=== PATIENT | male | born 1960 | race Caucasian/White ===

== ENCOUNTER 2019-02-25 09:43 | Day surgery (SDC) | payer BC ==
--- OUTSIDE RECORDS SUMMARY | 2019-02-25 09:50 | XMS REPORT ---
:1960 [facility] Address [address] [place] [address] Care Team Providers Name Role Phone BRIGITTE PICKETT Primary Care Provider Unavailable BRIGITTE PICKETT Unavailable Unavailable Problems This patient has no known problems. Allergies, Adverse Reactions, Alerts This patient has no known allergies or adverse reactions. Medications This patient has no known medications. Encounters Start End Encounter Admission Attending Care Care Encounter Date/Time Date/Time Type Type Clinicians Facility Department ID 2017-08-01 2017-08-01 Outpatient [facility] [id number] 08:51:00 08:51:00 BRIGITTE Results Test Description Test Time Test Comments Text Results Atomic Results Result Comments Glycosylated Hemoglobin 2017-08-02 12:33:00 Test Item Value Reference Range Comments HBA1c (test code=HBA1C) 7.3 % 4.8-5.9 CBC with [id number] 12:23:00 Test Item Value Reference Range Comments WBC (test code=WBC) 7.6 K/cumm 4.4-10.5 RBC (test code=RBC) 4.54 M/cumm 4.10-5.70 Hemoglobin (test code=HGB) 14.8 gm/dL 13.4-17.4 Hematocrit (test code=HCT) 42.8 % 38.7-52.0 MCV (test code=MCV) 94.2 fL 80-100 MCH (test code=MCH) 32.7 pg 27.0-32.5 MCHC (test code=MCHC) 34.7 g/dL 32.0-37.5 RDW (test code=RDW) 12.7 % 11.5-14.5 Platelet Count (test code=PLTCT) 193 K/cumm 140-440 MPV (test code=MPV) 11.6 fL Diff Method (test code=DIFFM) Auto Neutrophil (test code=NEUT) 62.0 % 36-70 Lymphocyte (test code=LYMPH) 28.4 % 12-44 Monocyte (test code=MONO) 5.9 % 0-11 Eosinophil (test code=EOS) 2.9 % 0-7 Basophil (test code=BASO) 0.8 % 0-2 Neutro Abs (test code=ANEUT) 4.7 K/cumm 1.6-7.4 Lymph Abs (test code=ALYMPH) 2.2 K/cumm 0.5-4.6 Lasalle Abs (test code=AMONO) 0.5 K/cumm 0.0-1.2 Eos Abs (test code=AEOS) 0.22 K/cumm 0.00-0.74 Baso Abs (test code=ABASO) 0.1 K/cumm 0.00-0.21 [id number] 12:23:00 Test Item Value Reference Range Comments NT ProBnp (test code=PBNP) 18 pg/mL 0-124 Comprehensive Metabolic [id number] 12:23:00 Test Item Value Reference Range Comments Sodium (test code=NA) 138 mmol/L 135-145 Potassium (test code=K) 4.5 mmol/L 3.5-5.1 Chloride (test code=CL) 99 mmol/L 98-105 Carbon Dioxide (test 28 mmol/L 22-29 code=CO2) Glucose (test code=GLU) 224 mg/dL 70-115 Blood Urea Nitrogen 20 mg/dL 6-20 (test code=BUN) Creatinine (test 0.8 mg/dL 0.7-1.2 code=CREAT) Calcium (test code=CA) 10.3 mg/dL 8.3-10.5 Prot Total (test 8.3 g/dL 6.4-8.3 code=TP) Albumin (test code=ALB) 5.0 g/dL 3.5-5.2 A/G Ratio (test 1.5 Ratio code=AGRATIO) Globulin (test 3.3 2.9-3.1 code=GLOB) Bili Total (test 0.7 mg/dL 0.1-0.9 code=TBIL) Alk Phos (test 86 U/L 40-129 code=APHOS) AST (test code=AST) 49 U/L 1-40 The value HEMO originally released by EL on 08/02/2017 09:56 waschanged to 49 by EL on 08/02/2017 10:00 ALT (test code=ALT) 88 U/L 1-41 BUN/Creatinine Ratio 25.0 (test code=BCRATIO) Anion Gap (test 11 mmol/L 7-16 code=AGAP) Estimated GFR (test >60 mL/min/1.73m2 eGFR (estimated Glomerular code=GFR) Filtration Rate) is an estimated value,calculated from the patient's serum creatinine using the MDRD equation.It is NOT the patient's actual GFR. The eGFR provides a more clinicallyuseful measure of kidney disease than serum creatinine alone.This calculation takes sex and race into account, if the informationis provided. If the race is not provided, and the patient isAfrican-Nepalese, multiply by 1.212. If sex is not provided, and thepatient is female, multiply by 0.742. Results for patients <18 years ofage have not been validated by the MDRD study and should be interpretedwith caution.eGFR Result Interpretation:eGFR > or=60 is in the Normal RangeeGFR < 60 may mean kidney diseaseeGFR < 15 may mean kidney failureRanges recommended by the National Kidney Foundation,http://nkdep.nih .gov Lipid [id number] 12:23:00 Test Item Value Reference Range Comments Cholesterol (test 180 mg/dL 0-200 code=CHOL) Triglycerides (test 74 mg/dL 9-200 code=TRIG) HDL (test code=HDL) 97 mg/dL 40-60 Chol/HDL (test 1.9 Ratio 0.0-5.0 code=CHOLPHDL) LDL, Calculated (test 68 0-130 (NOTE)RISK OF HEART code=LDLC) DISEASEPublished by Nepalese Heart AssociationAnalyte Optimal Boderline Increased RiskCHOL <200 200-239 >240TRIG <150 150-199 >200HDL Male: >60 <40HDL Female: >60 <50LDL <100 130-159 >160LDL NEAR OPTIMAL IS 100-129 VLDL (test code=VLDL) 15 mg/dL 5-40 LDL/HDL (test code=LDLPHDL) 1
[2019-02-25] MEDS ORDERED: BALANCED SALT IRRIG PLAIN 500 ML BTL IRR ONE (09:53)
[2019-02-25] MEDS ORDERED: EPINEPHRINE/PF 1 MG/ML AMP ONE ×2 (09:53→09:55)
[2019-02-25] MEDS ORDERED: LIDOCAINE 2% INJ, MPF 2 ML 0 ML ONE (09:54)
[2019-02-25] MEDS ORDERED: DUOVISC 1 KIT OPTH ONE (09:54)
[2019-02-25] MEDS ORDERED: MOXIFLOXACIN HCL 10 DROPS/ML **OR USE OPTH ONE (09:54)
[2019-02-25] MEDS ORDERED: NA CHLORIDE 0.9% 500 ML ONE (10:22)
[2019-02-25] MEDS ORDERED: PHENYLEPHRINE 10% OPTH 5ML ONE (10:25)
[2019-02-25] MEDS ORDERED: LIDOCAINE 2% MPF 5 ML VIAL ONE (10:26)
[2019-02-25] MEDS ORDERED: TETRACAINE HCL 0.5% 4ML OPTH ONE (10:26)
[2019-02-25] MEDS ORDERED: CYCLOPENTOLATE 1% OPTH 2 ML ONE (10:26)
[2019-02-25] MEDS ORDERED: BUPIVACAINE 0.25% PF 10 ML VIAL ONE (10:26)
[2019-02-25] MEDS ORDERED: LIDOCAINE HCL/PF 3.5% OPTH GEL ONE (10:27)
[2019-02-25] MEDS ORDERED: PHENYLEPHRINE 10% OPTH 5ML OPTH ONE ×2 (10:40→10:46)
[2019-02-25] MEDS ORDERED: CYCLOPENTOLATE 1% OPTH 2 ML OPTH ONE ×2 (10:40→10:46)
[2019-02-25] MEDS ORDERED: NS 0.9% VIAL 10 ML ONE (10:45)
[2019-02-25] MEDS ORDERED: MIDAZOLAM HCL 2 MG/2 ML INJ ONE ×2 (11:08→11:46)
[2019-02-25] MEDS ORDERED: FENTANYL CITR 100 MCG/2 ML ONE (11:08)
[2019-02-25] MEDS ORDERED: PROPOFOL 200 MG/20 ML VIAL IV ONE (11:50)
--- NOTE | 2019-02-25 12:22 | P.BOP ---
Preoperative diagnosis: Nuclear sclerotic cataract OS Postoperative diagnosis: Same Primary procedure: Phacoemulsification with IOL OS Estimated blood loss: None Anesthesia: Local (Topical converted to subtenon's anesthesia) Complications: None Implants: ZCB00 +21.0 Transferred to: Other (Day surgery) Condition: Good
[2019-02-25] MEDS ORDERED: LIDOCAINE 1% MPF 2 ML AMPULE ONE (12:28)
--- NOTE | 2019-02-25 22:36 | OP ---
Date of Procedure: 02/25/2019 Surgeon: Beverly Marley MD Anesthesiologist: Saran Matthews CRNA and Bravo Mendoza MD Preoperative Diagnosis: Nuclear sclerotic cataract, left eye. Operation Performed: Phacoemulsification with intraocular lens implant, left eye. Anesthesia: Per cataract surgery. Complications: None. Description Of Procedure: In the operating room the patient was prepped and draped in the usual sterile fashion for ophthalmic surgery. A lid speculum was placed in the left eye. Two paracentesis sites were made superiorly and inferiorly in the limbal cornea. Viscoat was placed in the anterior chamber and a crescent blade was used to make a corneal groove and tunnel, and a keratome was used to enter the anterior chamber. Provisc was placed in the anterior chamber and a 360 degree capsulotomy was performed with a cystitome. The lens was hydrodissected with BSS and rotated freely. The lens was removed with a stop and chop technique. 4.16 phaco CDE was used to remove the lens. Residual cortex was removed with the irrigation and aspiration. Provisc was placed in the capsular bag. A ZCB00 +21.0 lens was placed in the capsular bag without complications. Irrigation and aspiration was used to remove residual viscoelastic. The paracentesis sites were hydrated with BSS. The wound and paracentesis sites were inspected and found to be watertight. Vigamox 0.07 cc was placed intracamerally at the end of the procedure. The eye was irrigated with balanced salt solution. The eye was patched with a soft cotton patch and Bryant metal shield. The patient was returned to day surgery in good condition. Comments: Akten was placed in the eye in Day Surgery and irrigated out of the eye with BSS in the OR. Preservative free 1% lidocaine was placed in the anterior chamber prior to Viscoat. After initiation of the surgery, the patient was unable to keep his eye fixated on the microscope and a subtenon infusion was given after incising the conjunctiva with Vandana scissors. A sub -Tenon block consisting of a 1:1 mixture of 2% Xylocaine and 0.25% bupivacaine was placed through the conjunctival incision with a blunt cannula. uring the capsulotomy, the patient moved suddenly out of the microscope; however, there was no known apparent complication. Discharge Instructions: Mr. Malave is discharged to home in good condition. He is to follow up with Dr. Marley this afternoon at 3 and in the morning. ITA/MARIO Voice ID: [id number] Report ID: [id number] MTDD
== END 2019-02-25 12:57 | disposition home or self-care (01) ==
LOC: OR 09:43
PROVIDERS: ATTEND Ophthalmology Retina Specialist
PROC: 08RK3JZ Replacement of Left Lens with Synthetic Substitute, Percutaneous Approach (ICD-10-PCS; principal; 2019-02-25 10:30)
DX: H25.12 Age-related nuclear cataract, left eye (principal); E11.9 Type 2 diabetes mellitus without complications; I10 Essential (primary) hypertension; I25.10 Atherosclerotic heart disease of native coronary artery without angina pectoris; E78.00 Pure hypercholesterolemia, unspecified; Z87.891 Personal history of nicotine dependence; Z88.8 Allergy status to other drugs, medicaments and biological substances; Z95.5 Presence of coronary angioplasty implant and graft; Z83.518 Family history of other specified eye disorder; Z83.3 Family history of diabetes mellitus; Z82.49 Family history of ischemic heart disease and other diseases of the circulatory system
CPT/HCPCS: 66984; J2704; J0171; J2250 ×2; J3010; J2001; J3490